=== PATIENT | female | born 1950 | race Caucasian/White ===

== ENCOUNTER 2018-08-15 10:05 | Emergency (ER) | payer MEDICARE ==
[2018-08-15] MEDS ORDERED: TORAdol 30 mg Injection IM ONE (10:27)
--- NOTE | 2018-08-15 10:34 | ERPHSYRPT ---
- History of Present Illness Time Seen by Provider: 08/15/18 10:27 Source: patient Exam Limitations: no limitations Patient Subjective Stated Complaint: pt slipped off the toliet and landed on ground, pt now co pain to right knee Triage Nursing Assessment: pt arrived per ambulance, alert, resp easy, skin w/d/ p. no swelling to knee, unable to move knee without pain Physician History: This is a 68-year-old morbidly obese white female with history of chronic lower and upper extremity pain, brought by medics with complaint of right knee pain. According to patient she fell while going to the bathroom fell off the stool she is complaining of pain in her right knee she states she has pain with any movement of the right knee. She denies other injuries. Past medical history includes Taran-Mansfield virus, she has had a couple of TIAs, she states that she was told in the past that she has diabetes and was placed on metformin which she still takes but she lost a lot of weight and her sugars have been running well. She denies any heart problems she denies high blood pressure denies any kidney problems. Past surgical history includes cholecystectomy, tubal ligation Patient is chronically on hydrocodone inspect report shows that she filled 120 of the 08/14/25 tablets on July 17, 2018 and she gets this on a regular basis from her family doctor, Method of Injury: fell Occurred: just prior to arrival Severity of Pain-Max: moderate Severity of Pain-Current: moderate Lower Extremities Pain: knee: right Modifying Factors: Improves With: nothing Associated Symptoms: unable to bear weight, other (pain with movement and palpation right knee) Allergies/Adverse Reactions: iodine Allergy (Verified 08/15/18 10:14) Penicillins Allergy (Verified 08/15/18 10:14) Sulfa (Sulfonamide Antibiotics) Allergy (Verified 08/15/18 10:14) Home Medications: Amlodipine Besylate 5 mg DAILY 08/15/18 [History] Gabapentin 300 mg TID 08/15/18 [History] Hydrocodone/Acetaminophen [Hydrocodone-Acetamin 5-325 mg] 1 ea TID 08/15/18 [ History] Lovastatin 20 mg DAILY 08/15/18 [History] Meloxicam 7.5 mg DAILY 08/15/18 [History] Metformin HCl 1,000 mg BID 08/15/18 [History] Ranitidine HCl [Zantac] 150 mg DAILY 08/15/18 [History] Hx Tetanus, Diphtheria Vaccination/Date Given: No Hx Influenza Vaccination/Date Given: No Hx Pneumococcal Vaccination/Date Given: Yes Immunizations Up to Date: No - Past Medical History Pertinent Past Medical History: Yes Neurological History: TIA (Patient states she's had 2 tia's ) ENT History: No Pertinent History Cardiac History: No Pertinent History Respiratory History: No Pertinent History Endocrine Medical History: Diabetes Type II (Patient was told she had diabetes in the past blood sugars improved with weight loss and metformin) Musculoskeletal History: Other (chronic upper and lower extremity pain) GI Medical History: No Pertinent History History: No Pertinent History Other Medical History: taran bar virus - Past Surgical History Past Surgical History: Yes Gastrointestinal: Cholecystectomy Female Surgical History: Tubal Ligation - Social History Smoking Status: Never smoker Exposure to second hand smoke: No Drug Use: none Patient Lives Alone: No - Female History Hx Last Menstrual Period: post Hx Now: No - Nursing Vital Signs Nursing Vital Signs: Initial Vital Signs Temperature 98.4 F 08/15/18 10:07 Pulse Rate 59 L 08/15/18 10:07 Respiratory Rate 20 08/15/18 10:07 Blood Pressure 120/73 08/15/18 10:07 O2 Sat by Pulse Oximetry 96 08/15/18 10:07 Pain Scale Pain Intensity 6 - Physical Exam General Appearance: mild distress, other (well-developed morbidly obese white female, alert oriented 3 ) Eyes, Ears, Nose, Throat Exam: moist mucous membranes Neck Exam: non-tender, supple Cardiovascular/Respiratory Exam: chest non-tender, normal breath sounds, regular rate/rhythm, no respiratory distress Gastrointestinal/Abdominal Exam: non-tender, guarding Back Exam: normal inspection, No vertebral tenderness Hips Exam: right: other (patient does not move her right hip because of right knee pain, no tenderness with palpation of right hip), left: non-tender, normal inspection, normal range of motion Legs Exam: right leg: other (decreased range of motion right leg secondary to right knee pain, ), left leg: normal range of motion, no evidence of injury, bilateral leg: non-tender, normal inspection Knees Exam: right knee: other (decreased range of motion right knee secondary to pain right knee tender with palpation), left knee: non-tender, normal inspection, normal range of motion, no evidence of injury Ankle Exam: bilateral ankle: non-tender, normal inspection, normal range of motion, no evidence of injury Foot Exam: bilateral foot: non-tender, normal inspection, normal range of motion , no evidence of injury Neuro/Tendon Exam: normal sensation, normal motor functions Mental Status Exam: alert, oriented x 3, cooperative Skin Exam: normal color, warm, dry SpO2 Interpretation: normal (96%) SpO2: 96 Oxygen Delivery: Room Air - Course Nursing assessment & vital signs reviewed: Yes - Radiology Exams Knee X-ray Interpretation: Discussed w/ radiologist (x-ray right knee: moderately displaced oblique fracture involv. Else were osteopenia, moderate/to advanced tricompartmental degenerative changes, and scattered vascular calcifications.) Pelvis X-ray Interpretation: Discussed w/ radiologist (X-ray pelvis osteopenia, moderate lower lumbar d, 5 mm right renal calci. An right abdomen suture material. No other bony, articular or soft tissue abnormalities) Ordered Tests: Active Orders 24 hr Category Date Time Status Cazares [Catheter-[place] Cazares] STAT Care 08/15/18 11:34 Active KNEE (1 OR 2 VIEW) Stat Exams 08/15/18 10:28 Completed PELVIS (1 OR 2 VIEWS) Stat Exams 08/15/18 10:28 Completed CBC W DIFF Stat Lab 08/15/18 11:28 Ordered CMP Stat Lab 08/15/18 11:28 Ordered PROTIME WITH INR Stat Lab 08/15/18 11:28 Ordered PTT Stat Lab 08/15/18 11:28 Ordered UA W/RFX UR CULTURE Stat Lab 08/15/18 11:33 Ordered Medication Summary Generic Name Dose Route Start Last Admin Trade Name Freq PRN Reason Stop Dose Admin Sodium Chloride 1,000 mls @ 50 mls/hr 08/15/18 11:30 08/15/18 11:42 Sodium Chloride 0.9% 1000 Ml IV 09/14/18 11:29 50 mls/hr .Q20H ANURADHA Administration Discontinued Medications Generic Name Dose Route Start Last Admin Trade Name Freq PRN Reason Stop Dose Admin Ketorolac Tromethamine 60 mg 08/15/18 10:27 08/15/18 11:00 Toradol 30 Mg Injection IM 08/15/18 10:28 60 mg STAT ONE Administration Ketorolac Tromethamine Confirm 08/15/18 10:51 Toradol 30 Mg Injection Administered 08/15/18 10:52 Dose 60 mg .ROUTE .STK-MED ONE Morphine Sulfate 2 mg 08/15/18 11:29 08/15/18 11:41 Morphine Sulfate 2 Mg Inj IV 08/15/18 11:30 2 mg STAT ONE Administration Morphine Sulfate Confirm 08/15/18 11:37 Morphine Sulfate 2 Mg Inj Administered 08/15/18 11:38 Dose 2 mg .ROUTE .STK-MED ONE - Progress Progress: improved Progress Note: 08/15/18 10:37 This is a 68-year-old white female who has had TIAs in the past she has chronic upper and lower extremity pain 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 She apparently was going to the bathroom this morning and fell off stool she is having pain in her right knee and states she cannot move her right knee secondary to pain. When I see the patient laying in the bed it appears as if her right lower extremity is somewhat shorter than the left and she has it rotated off to the lateral side she states that this is just because she doesn't want to move her knee and it hurts I do not feel pain with palpation of her hip however patient states she hurts when she tries to move her hip because of her knee Will go ahead and shoot x-ray the patient's right knee as well as a pelvis examination on the patient. The patient is chronically on [place] 10/325 she has filled 120 of these on July 17, 2018 this is a regular prescription for the patient. She does however believe she is on 03/14/25. Patient is also on meloxicam. Will give patient one time injection of Toradol. We'll go ahead and obtain x-rays as noted above. 08/15/18 11:32 This is a 68-year-old white female who fell off the stool this morning she has the pain in her right knee and is not moving her right knee or hip secondary to pain. X-ray of her right knee is remarkable for a moderately displaced oblique fracture involving the distal femur shaft/medial condyle. Elsewhere osteopenia , moderate/advanced tricompartmental degenerative changes, and scattered vascular calcification X-ray of the pelvis is remarkable for osteopenia, moderate lower lumbar degenerative spondylosis, a 5 mm right renal calcification/calculus, and right abdominal suture material no other bony articular soft tissue abnormalities are noted. Patient was offered morphine upon arrival she did not want this therefore she was given Toradol 60 mg IM. After of revealing to her that she has a fracture of her femur she is now agreeable to receive morphine and her is asking that we go very low dose to start with so will give her [address] an IV normal saline 50 mL per hour. Will go ahead and draw CBC CMP UA PT PTT. Patient and her are wanting the patient to go to [facility] for care of her femur. Will contact [facility], [place], operated by [facility]. 08/15/18 11:[address] Ayala through [facility]. The patient's case was discussed with him. He stated that the patient can be transferred to [facility] through the emergency room trauma did not need to be activated. Will go ahead and transfer patient via ambulance. to [facility]. Patient's labs are pending. - Departure Time of Disposition: 11:44 Departure Disposition: Transfer ([facility]) Clinical Impression: accidental fall Closed fracture of right distal femur Qualifiers: Encounter type: initial encounter Fracture morphology: unspecified fracture morphology Qualified Code(s): S72.401A - Unspecified fracture of lower end of right femur, initial encounter for closed fracture Condition: Fair Critical Care Time: No Referrals: MIR MATHIAS [Primary Care Provider] -
[2018-08-15] MEDS ORDERED: TORAdol 30 mg Injection ONE (10:51)
--- NOTE | 2018-08-15 11:14 | XRAY ---
Indication: Pain following fall. Comparison: None Single AP pelvis demonstrates osteopenia, moderate lower lumbar degenerative spondylosis, 5 mm right renal calcification/calculus, and right abdomen suture material. No other bony, articular, or soft tissue abnormalities.
--- NOTE | 2018-08-15 11:16 | XRAY ---
Indication: Pain following fall. Comparison: None AP/crosstable lateral left knee demonstrates moderately displaced oblique fracture involving the distal femur shaft/medial condyle. Elsewhere osteopenia, moderate/advanced tricompartmental degenerative changes, and scattered vascular calcifications.
[2018-08-15] MEDS ORDERED: MORPHINE SULFATE 2 MG INJ IV ONE ×2 (11:29→12:26)
[2018-08-15] MEDS ORDERED: Sodium Chloride 0.9% 1000 ML 1,000 ML IV SCH (11:30)
[2018-08-15 11:35] VITALS: O2SAT 96
[2018-08-15] MEDS ORDERED: Sodium Chloride 0.9% 1000 ML 1,000 ML ONE (11:37)
[2018-08-15] MEDS ORDERED: MORPHINE SULFATE 2 MG INJ ONE ×2 (11:37→12:29)
[2018-08-15 11:48] VITALS: PULSE 68
[2018-08-15 11:56] VITALS: BP 97/67
[2018-08-15 11:59] LABS: Appearance CLEAR (CLEAR); Bilirubin NEGATIVE (NEGATIVE); Blood NEGATIVE Ery/ul (0-5); Glucose NEGATIVE (NEGATIVE); Ketones NEGATIVE (NEGATIVE); Leukocyte Esterase NEGATIVE (NEGATIVE); Specific Gravity 1.016 (1.005-1.025); Urobilinogen 4 mg/dL (0-1)
[2018-08-15 12:01] LABS: Protein,Urine Dip NEGATIVE (Negative)
[2018-08-15 12:02] LABS: Nitrite COLOR INTERFERENCE (NEGATIVE)
[2018-08-15 12:27] LABS: INR 1.03 (0.8-3.0)
[2018-08-15 12:30] LABS: PTT 26.9 SECONDS (25.3-37.0)
[2018-08-15 12:32] LABS: ALBUMIN 4.1 g/dL (3.5-5.0); ANION GAP 14.8 MEQ/L (5-15); BILIRUBIN,TOTAL 0.3 mg/dL (0.2-1.3); Calcium 9.1 mg/dL (8.4-10.2); Creatinine 1 1.02 mg/dL (0.52-1.04); Total Protein 7.1 g/dL (6.3-8.2)
[2018-08-15 12:36] LABS: BASOPHIL % 0.2 % (0.0-0.4); Basophil (Absolute #) 0.02 (0-0.4); Eosinophil % 2.7 % (0.00-5.0); Eosinophil (Absolute #) 0.26 (0-0.5); Granulocyte Absolute (ANC) 7.23 (1.4-6.9); Granulocytes % 74.9 % (36.0-66.0); Hematocrit 36.5 % (35-47); Hemoglobin 11.4 gm/dl (12.0-16.0); Lymphocyte (Absolute #) 1.56 (1.0-4.6); Lymphocytes % 16.2 % (24.0-44.0); Mean Corpuscular Hgb Concent. 31.2 g/dl (32-36); Mean Platelet Volume 11.1 fl (6-9.5); Monocyte (Absolute #) 0.58 (0.0-1.3); Platelet Count 258 K/mm3 (150-450); Red Blood Count 4.15 M/mm3 (4.1-5.4); Red Cell Distribution Width 13.4 % (11.5-14.0); White Blood Count 9.7 K/mm3 (4.0-10.5)
[2018-08-15 12:37] LABS: Mean Corpuscular Hemoglobin 27.4 pg (26-32)
== END 2018-08-15 12:36 | disposition short-term general hospital (02) ==
LOC: ED 10:05
DX: S72.432A Displaced fracture of medial condyle of left femur, initial encounter for closed fracture (principal); W18.11XA Fall from or off toilet without subsequent striking against object, initial encounter; Y93.E8 Activity, other personal hygiene; Y92.002 Bathroom of unspecified non-institutional (private) residence as the place of occurrence of the external cause; Z79.899 Other long term (current) drug therapy; E11.9 Type 2 diabetes mellitus without complications; Z79.84 Long term (current) use of oral hypoglycemic drugs
CPT/HCPCS: 29505; 36415; 51702; 72170; 73560; 80053; 81001; 85025; 85610; 85730; 87077; 87086; 87186; 96360; 96372; 96374; 96376; 99285; J1885; J2270